=== PATIENT | female | born 1935 | race Caucasian/White ===

== ENCOUNTER 2017-01-10 21:15 | Inpatient (IN) | payer MEDICARE ==
--- NOTE | ~2017-01-10 | DS ---
Unit #: [id number] #: [id number] Patient: RAUL VALENCIA [id number] [facility] [address] [facility]. [place], [place] [address] [id number] I MR#: [id number] NAME: RAUL VALENCIA ROOM: 330 Age: 81 Sex: F Admission Date: 01/10/2017 : 1935 Discharge Date: Attending Physician: Jessica Piña M.D. Primary Care Physician: Anna Wylie M.D. DISCHARGE SUMMARY DIAGNOSIS ON ADMISSION 1. Generalized weakness. DIAGNOSES ON DISCHARGE 1. Generalized weakness, improved. 2. Coronary artery disease status post coronary artery bypass graft. 3. Valvular heart disease status post aortic valve replacement. 4. Hypertension. 5. Type 2 diabetes mellitus. 6. Dyslipidemia. 7. Vitamin B12 deficiency. 8. Folate deficiency. 9. Anemia. CONSULTATIONS Dr. Ochoa in renal consultation. DIAGNOSTIC STUDIES LABS: The patient's creatinine is 0.6, sodium is 140, potassium is 4.1. AST was 61 on admission, ALT is 32. WBC is 9.1, hemoglobin 9, platelet count 212. Urine culture revealed mixed growth, around 30,000. The patient's BNP was 190. IMAGING: CT scan of the pelvis did not reveal any acute fracture. CT scan of head did not reveal any acute intracranial abnormality. Chest x-ray did not reveal any acute findings. The patient has multivalve repair. Bilateral hip x-ray revealed degenerative joint disease. No acute fracture. HOSPITAL COURSE This 81-year-old female was admitted to [facility] with weakness. Details are as per admission H and P. The patient was admitted in the hospital and was seen by Dr. 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 The patient had a two-D echocardiogram done, which revealed ejection fraction of 50% to 55%. The patient had mild mitral and mild tricuspid regurgitation present. There was no evidence of aortic valve regurgitation present. Unit #: [id number] #: [id number] Patient: RAUL VALENCIA Anemia. The patient's hemoglobin is 9. Vitamin B12, folic acid and iron levels were done. PHYSICAL EXAMINATION GENERAL: Today, the patient is comfortable and is not in any acute distress. HEENT: Examination revealed no conjunctival congestion. Sclera is nonicteric. NECK: Neck is supple. Trachea is central. RESPIRATORY: Examination revealed decreased breath sounds bilaterally. There are no wheezes or crackles. HEART: Regular rate and rhythm. S1, S2. ABDOMEN: Abdomen is soft, nontender. Bowel sounds are present. EXTREMITIES: Extremities reveal trace pedal edema. SKIN: Skin is warm and dry. NEUROLOGIC: The patient is pleasantly confused, is able to move all extremities. PSYCHIATRIC: The patient is pleasantly confused. VITAL SIGNS: The patient's vital signs reveal temperature of 98.3, pulse 71 per minute, respiratory rate 18 per minute and blood pressure 114/69. RECOMMENDATIONS ON DISCHARGE 1. Condition is stable. 2. Activity is as tolerated. DISCHARGE MEDICATIONS 1. Lopressor 50 mg p.o. b.i.d. 2. Norvasc 10 mg p.o. daily. 3. Lipitor 40 mg p.o. q.h.s. 4. Cipro 250 mg p.o. b.i.d. for 3 days. 5. Glipizide 10 mg p.o. b.i.d. 6. Folic acid 1 mg p.o. daily. 7. Vitamin B12 - 1 mg subcu daily for 7 days, then weekly for 4 weeks, then monthly. 8. Iron sulfate 324 mg p.o. daily. FOLLOW-UP 1. The patient was advised to follow up with primary care physician in one week and have a CBC and BMP done and also for workup on anemia. 2. Follow up with renal as recommended. 3. We will arrange home health regarding home safety assessment, PT, OT and social work care. 4. The patient needs long-term care and that should e arranged on an outpatient basis. I called and discussed with the patient's son, Campbell, who states that his parents have a bedbug issue, and he is working on that, and they were not able to take care of themselves. He said he will talk to the home health social work program coordinator. Dictated by.Sanjana Zambrano TD: 01/13/2017 14:51 JOB #: [id number] Unit #: [id number] #: [id number] Patient: RAUL VALENCIA DISCHARGE SUMMARY Page 1 of 1 X Jessica Piña MD DISCHARGE SUMMARY
--- NOTE | ~2017-01-10 | HP ---
Unit #: [id number] #: [id number] Patient: RAUL VALENCIA [id number] [facility]. [place], [place] [address] [id number] I MR#: [id number] NAME: RAUL VALENCIA ROOM: 330 Age: 81 Sex: F Admission Date: 01/10/2017 : 1935 Attending Physician: Jessica Piña M.D. Primary Care Physician: Anna Wylie M.D. HISTORY AND PHYSICAL CHIEF COMPLAINT Generalized weakness, left hip pain. DISCUSSION This is an 81-year-old female, very poor historian, she has a history of coronary artery disease with three vessel coronary artery bypass graft, history of valve replacement, history of hypertension, diabetes, dyslipidemia. She lives at home with her . Her son found her that she had not been walking for the last twenty-four hours with generalized weakness and she was brought to the emergency room. She is a poor historian, not give me any history, she denied chest pain, she denies nausea, vomiting, fever, chills, cough, or any other complaints. She says she has a valve surgery and coronary artery bypass graft in the past. She is not on anticoagulation. I did call to [facility] and [facility], so far unable to get any records from these two hospitals, will try [place] and [facility], otherwise she is stable. She is complaining of some left hip pain. PAST MEDICAL HISTORY 1. History of coronary artery disease with previous coronary artery bypass graft. 2. History of valvular heart disease. 3. History of status post valve replacement. 4. Hypertension. 5. Diabetes. 6. Dyslipidemia. 7. History of colonoscopy which in 2011 shows krause diverticulosis and moderate size internal hemorrhoids. 8. History of cardiac catheterization in 2012 which shows severe aortic stenosis, left main and right coronary artery stenosis, vsqickxh-hi-hijdja MR, and severe aortic stenosis. PAST SURGICAL HISTORY 1. History of coronary artery disease status post coronary artery bypass grafting. 2. Valve replacement. 3. Right shoulder surgery. 4. History of sebaceous cyst aspiration from chest wall. 5. History of colonoscopy. SOCIAL HISTORY She denies smoking. She denies alcohol. She denies illicit drug use. MEDICATIONS FROM HOME Unit #: [id number] #: [id number] Patient: RAUL VALENCIA Is the followin. Glucophage 1 gram daily 2. Glipizide 20 mg daily 3. Amlodipine/losartan/hydrochlorothiazide 10/160/12.5 once daily 4. Lopressor 50 mg twice daily 5. Lipitor 40 mg daily REVIEW OF SYSTEMS Unobtainable from the patient at this time. PHYSICAL EXAMINATION GENERAL: Elderly female lying in the bed comfortably, currently not in any distress. She is alert, awake, and oriented x1 only, not in any distress. VITAL SIGNS: Current vitals are the following, temperature 98.2, heart rate 90, respiratory rate 16, and blood pressure 124/50. HEENT EXAMINATION: Pupils equal reactive to light and accommodation. Head: Normocephalic and atraumatic. NECK: Supple. No jugular venous distention. HEART: S1 and S2, positive metal click but regular rate and rhythm. LUNGS: Poor entry but clear. ABDOMEN: Soft, nontender, and nondistended. EXTREMITIES: Positive pitting edema. NEUROLOGIC: No focal neurologic deficit. Cranial nerves II through XII intact. DIAGNOSTIC STUDIES LABORATORY: Laboratory workup is the following, sodium 134, potassium is 4.3, CO 25, glucose 189, BUN 57, creatinine 1.2, LFT within normal limits. INR is 1, troponin less than 0.05, white count 12.7, hemoglobin 10, hematocrit 35, platelets 272, glucose 197. IMAGING: Chest x-ray shows no acute findings, valve repair. X-ray of hip negative for fracture. ASSESSMENT/PLAN 1. Generalized weakness, deconditioning, will admit the patient and ask inventory planner to evaluate possible detention placement. 2. Acute kidney injury, questionable baseline, will hold metformin, hold losartan and hydrochlorothiazide and will ask nephrology to evaluate. 3. Lower extremity edema, will get 2D echo and follow with a BNP. 4. Will get urine for urinalysis. 5. Coronary artery disease, status post coronary artery bypass graft. 6. History of valve replacement. 7. Hypertension. 8. Diabetes. 9. Dyslipidemia. 10. Osteoarthritis. 11. DVT prophylaxis, will place the patient on Lovenox. Dictated by José Ho M.D. Unit #: [id number] #: [id number] Patient: ERIKRAUL TD: 01/11/2017 14:04 JOB #: [id number] HISTORY AND PHYSICAL Page 1 of 1 X X HISTORY AND PHYSICAL
--- NOTE | ~2017-01-10 | CR150 ---
[facility] A Service of [facility] RADIOLOGY TEXT RESULTS PATIENT: RAUL VALENCIA LOCATION: [facility] 330- : 36 UNIT #: [id number] AGE: [address]: Jessica Piña MD SEX: F ORDER DR: [id number] [facility] [address] [facility]. [place], [place] [address] [id number] I MR#: [id number] Acc #: [id number] NAME: RAUL VALENCIA : 1935 SEX: F STUDY DATE/TIME: [facility] ROOM: [facility] STUDY DESCRIPTION: CR Hip Min 2 Views Lt Attending Physician: Jessica Piña M.D. Ordering Physician: Sidney Parker M.D. Primary Care Physician: Anna Wylie M.D. MEDICAL IMAGING REPORT This report is preliminary unless electronic signature is present EXAM Left hip and pelvis 01/10, 2239 hours INDICATIONS Hip pain for 2 days. No trauma. TECHNIQUE AP pelvis was obtained in addition to a frog-leg left hip. FINDINGS There is osteoarthritis in both hips with joint space narrowing and spurring. No acute fractures are identified. The femoral heads are normal without evidence of osteonecrosis. Note is made of atherosclerotic disease. IMPRESSION Bilateral hip osteoarthritis. No acute fractures. There is atherosclerotic disease. Dictated by... Veto Wise Jr., M.D. THIS IS AN ELECTRONICALLY VERIFIED REPORT Veto Wise Jr., M.D. at 01/11/2017 9:23 PM RLK/janell TD: 01/11/2017 08:25 JOB #: [id number] MEDICAL IMAGING REPORT Page 1 of 1 COPY
--- NOTE | ~2017-01-10 | CT71 ---
[facility] A Service of [facility] RADIOLOGY TEXT RESULTS PATIENT: RAUL VALENCIA LOCATION: [facility] : 36 UNIT #: [id number] AGE: [address]: Jessica Piña MD SEX: F ORDER DR: [id number] [facility] [address] [facility]. [place], [place] [address] [id number] I MR#: [id number] Acc #: [id number] NAME: RAUL VALENCIA : 1935 SEX: F STUDY DATE/TIME: UNIT: [address] ROOM: [facility] STUDY DESCRIPTION: CT Head Wo Contrast Attending Physician: Jessica Piña M.D. Ordering Physician: Sidney Parker M.D. Primary Care Physician: Anna Wylie M.D. MEDICAL IMAGING REPORT This report is preliminary unless electronic signature is present EXAM Head CT 01/10 2318 hours INDICATIONS Increasing weakness over the last 2 days with recent falls. 3 falls yesterday. TECHNIQUE Axial images were obtained from base to vertex without contrast. This CT exam was performed with one or more of the following radiation dose reduction techniques: automatic exposure control, adjustment of mA and/or kV according to patient size, and iterative reconstruction. COMPARISON No comparison. FINDINGS There is generalized atrophy with chronic small vessel ischemic change in the white matter. 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 Atherosclerotic disease noted in the carotid siphons and vertebral arteries. There is no acute infarct or hemorrhage. There are no masses. No skull fracture. IMPRESSION No acute intracranial abnormalities. Chronic changes as above. No skull fracture. Dictated by... Veto Wise Jr., M.D. THIS IS AN ELECTRONICALLY VERIFIED REPORT Veto Wise Jr., M.D. at 01/11/2017 9:23 PM RLK/to [facility] A Service of [facility] RADIOLOGY TEXT RESULTS PATIENT: RAUL VALENCIA LOCATION: [facility] : 36 UNIT #: [id number] AGE: [address]: Jessica Piña MD SEX: F ORDER DR: TD: 01/11/2017 09:10 JOB #: [id number] MEDICAL IMAGING REPORT Page 1 of 1 COPY
--- NOTE | ~2017-01-10 | CR72 ---
[facility] A Service of [facility] RADIOLOGY TEXT RESULTS PATIENT: RAUL VALENCIA LOCATION: [facility] 330- : 36 UNIT #: [id number] AGE: [address]: Jessica Piña MD SEX: F ORDER DR: [id number] [facility] [address] [facility]. [place], [place] [address] [id number] I MR#: [id number] Acc #: [id number] NAME: RAUL VALENCIA : 1935 SEX: F STUDY DATE/TIME: [facility] STUDY DESCRIPTION: CR Chest Single View Portable Attending Physician: Jessica Piña M.D. Ordering Physician: Sidney Parker M.D. Primary Care Physician: Anna Wylie M.D. MEDICAL IMAGING REPORT This report is preliminary unless electronic signature is present EXAM Portable chest 01/10, 22:37 INDICATIONS Shortness of air with activity, weakness and chest pain for 2 days. TECHNIQUE/COMPARISON AP portable chest compared with 10/24/2011 FINDINGS There is mild cardiomegaly. Patient is status post multivalve repair. There is some chronic elevation of the right hemidiaphragm. Lungs are clear. No pneumothorax. IMPRESSION Status post valve repair. No acute findings in the chest. Dictated by... Veto Wise Jr., M.D. THIS IS AN ELECTRONICALLY VERIFIED REPORT Veto Wise Jr., M.D. at 01/11/2017 9:23 PM RLK/janell TD: 01/11/2017 08:23 JOB #: [id number] MEDICAL IMAGING REPORT Page 1 of 1 COPY
--- NOTE | ~2017-01-10 | CO ---
Unit #: [id number] #: [id number] Patient: RAUL VALENCIA [id number] [address] [place], [place] [address] [id number] I MR#: [id number] NAME: RAUL VALENCIA. ROOM: 330 Age: 81 Sex: F Admission Date: 01/10/2017 : 1935 Attending Physician: Jessica Piña M.D. Primary Care Physician: Anna Wylie M.D. CONSULTATION REPORT CONSULT REQUESTING PHYSICIAN Dr. Ho REASON FOR CONSULTATION Patient with elevated BUN and creatinine, known history of diabetes mellitus and coronary artery disease. HISTORY OF PRESENTING ILLNESS This patient is a very pleasant 81-year-old white female with a history of type 2 diabetes, hypertension, osteoarthritis, history of coronary artery disease status post CABG three years ago along with valve replacement. The patient was admitted following a fall with generalized weakness and deconditioning. She fell at home, was brought in for admission. On admission, the patient was found to have serum creatinine of 1.2. Her baseline creatinine is not available in the system. The patient reported that she tripped and fell. She denied any dysuria or frequency of urination or hesitancy of urination. The patient does seem to have urinary tract infection on urinalysis with 5-10 WBCs, positive proteinuria and leukocyte esterase indicative of chronic kidney disease from diabetes with urinary tract infection. May be causing patient to get confused and fall. Currently, she is feeling better. Her serum creatinine has improved to 0.9 from 1.2. She still looked clinically a little bit intravascularly volume depleted. PAST MEDICAL HISTORY As per history of presenting illness. FAMILY HISTORY Noncontributory. MEDICATIONS Include: 1. Glucophage 1 g twice daily. 2. Glipizide 20 mg daily. 3. Amlodipine/valsartan/hydrochlorothiazide, one tablet daily. 4. Lopressor 50 mg daily. 5. Lipitor 40 mg daily. REVIEW OF SYSTEMS As per history of presenting illness. PHYSICAL EXAMINATION GENERAL: The patient is in no acute distress. Unit #: [id number] #: [id number] Patient: RAUL VALENCIA VITAL SIGNS: Temperature is 98, pulse is 70, blood pressure 137/66. HEENT: Dry mucosa. No oral exudate. NECK: Supple. There is no JVD, no bruit, no thyromegaly, no cervical lymphadenopathy. CHEST: Clear to auscultation bilaterally. CARDIOVASCULAR: Regular rate and rhythm. No rub, murmur or gallop. ABDOMEN: Soft, nontender, nondistended. Positive bowel sounds. EXTREMITIES: The patient has no peripheral edema. DIAGNOSTIC STUDIES LABORATORY DATA: The patient's urine showed positive proteinuria, +1 positive leukocyte esterase and pyuria indicative of urinary tract infection. The patient's blood count is 12.7, white cell count, hemoglobin 10.8, hematocrit 35, platelet count 222. On the serum chemistry, sodium is 139, potassium 4, chloride 106, bicarb 25, BUN 45, creatinine 0.9. The patient, as I said, looks intravascularly volume depleted and was on diuretics as well so will give IV fluids. Patient does seem to have CKD secondary to diabetic nephropathy with proteinuria. Will need to have a followup in the clinic. Will aid patient on some antibiotic including Ciprofloxacin orally or ampicillin and will monitor electrolytes and renal function. Dictated by... Sanjana Negron/antoine TD: 01/12/2017 05:25 JOB #: [id number] CONSULTATION REPORT Page 1 of 1 X Khushbu Ochoa MD X CONSULTATION REPORT
--- NOTE | ~2017-01-10 | CT107 ---
[facility] A Service of [facility] RADIOLOGY TEXT RESULTS PATIENT: RAUL VALENCIA LOCATION: [facility] - : 36 UNIT #: [id number] AGE: [address]: Jessica Piña MD SEX: F ORDER DR: [id number] [facility] [address] [facility]. [place], [place] [address] [id number] I MR#: [id number] Acc #: [id number] NAME: RAUL VALENCIA : 1935 SEX: F STUDY DATE/TIME: [facility]: [facility] STUDY DESCRIPTION: CT Pelvis Wo Cont Attending Physician: Jessica Piña M.D. Ordering Physician: Sidney Parker M.D. Primary Care Physician: Anna Wylie M.D. MEDICAL IMAGING REPORT This report is preliminary unless electronic signature is present EXAM Pelvis CT 01/10 at 23:22 INDICATIONS 3 fall yesterday with subsequent left hip pain. TECHNIQUE Axial images were obtained through the pelvis without contrast. Multiplanar reformats were obtained. This CT exam was performed with one or more of the following radiation dose reduction techniques: automatic exposure control, adjustment of mA and/or kV according to patient size, and iterative reconstruction. COMPARISON No comparison CT FINDINGS There is degenerative disease in the lower lumbar spine. No acute fractures are identified in the pelvis. There is no sacroiliac joint diastases. There is no osteonecrosis in the femoral heads. There is bilateral hip osteoarthritis. There is some degenerative disease at the symphysis pubis. Soft tissue windows demonstrate extensive atherosclerotic disease. No evidence of joint effusion on either hip. There is sigmoid diverticulosis. There is no free fluid in the pelvis. IMPRESSION No acute fracture or malalignment in the pelvis or hips. There is bilateral hip osteoarthritis. No evidence of osteonecrosis. Dictated by... Veto Wise Jr., M.D. THIS IS AN ELECTRONICALLY VERIFIED REPORT [facility] A Service of [facility] RADIOLOGY TEXT RESULTS PATIENT: RAUL VALENCIA LOCATION: [facility] 330-01 : 36 UNIT #: [id number] AGE: [address]: Jessica Piña MD SEX: F ORDER DR: Veto Wise Jr., M.D. at 01/11/2017 9:23 PM DALEK/janell TD: 01/11/2017 09:33 JOB #: [id number] MEDICAL IMAGING REPORT Page 1 of 1 COPY
--- NOTE | ~2017-01-10 | EKG ---
PATIENT: RAUL VALENCIA UNIT #: [id number] Ventricular Rate: 89 BPM Atrial Rate: 89 BPM P-R Interval: 150 ms QRS Duration: 118 ms Q-T Interval: 406 ms QTC Calculation(Bezet): 493 ms P Owings: 43 degrees Calculated R Owings: -56 degrees Calculated T Owings: 57 degrees Diagnosis Line: Normal sinus rhythm with sinus arrhythmia Diagnosis Line: Pulmonary disease pattern Diagnosis Line: Incomplete right bundle branch block Diagnosis Line: Left anterior fascicular block Diagnosis Line: Prolonged QT Diagnosis Line: Abnormal ECG Diagnosis Line: No previous ECGs available Diagnosis Line: Confirmed by BUDDY GRIFFIN MD ([id number]) on Diagnosis Line: 01/11/2017 11:14:50 AM INTERPRETING MD: FELECIA
[~2017-01-10 21:15] MED LIST: ANUSOL SUPP1 SUPP; DIOVAN HCT 160/1 TAB PO; EXFORGE HCT 101 EACH PO; GLIPIZIDE10 MG PO; GLIPIZIDE10 MG/BOTT PO; LIPITOR PO; LIPITOR40 MG PO; LOPRESSOR PO; METFORMIN PO; NORVASC PO; PERCOCET 5-3251 TAB PO; ZETIA PO
[2017-01-10 22:28] LABS: BASOPHIL# 0.1 X10e3 (0-0.3); BASOPHIL% 0.9 % (0-2.5); DIFF IND NO; EOSINOPHIL% 0.1 % (0.0-7.0); HEMOGLOBIN 10.8 gm/dL (12.0-16.0); LYMPHOCYTE# 1.1 X10e3 (1.0-3.5); LYMPHOCYTE% 8.9 % (17.0-45.0); MEAN CELL VOLUME 76.8 FL (83-96); MEAN CORPUSCULAR HEMOGLOBIN 23.7 PG (28-34); MEAN CORPUSCULAR HGB CONC 30.9 g/dL (30-36); MEAN PLATELET VOLUME 8.7 FL (6.5-11.5); MONOCYTE# 1.6 X10e3 (0-1.0); NEUTROPHIL# 9.7 X10e3 (1.5-7.1); NEUTROPHIL% 77.1 % (40-75); PLATELET COUNT 272 X10e3 (140-420); RED BLOOD COUNT 4.55 X10e (3.90-5.30); RED CELL DISTRIBUTION WIDTH 15.9 % (11.0-15.5); WHITE BLOOD COUNT 12.7 X10e3 (4.0-10.5)
[2017-01-10 22:39] LABS: PROTHROMBIN TIME (PATIENT) 10.8 SECONDS (10.0-11.7)
[2017-01-10 22:41] LABS: POC - CKMB 8.8 ng/mL (0.0-7.9); POC - TROPONIN <0.05 ng/mL (<=0.05)
[2017-01-10 22:51] LABS: ALBUMIN SERUM 3.3 g/dL (3.5-5.0); BILIRUBIN, DIRECT 0.2 mg/dL (0.0-0.2); BILIRUBIN,INDIRECT 0.7 mg/dL (0.0-0.9); BILIRUBIN,TOTAL 0.9 mg/dL (0.2-2.0); BUN/CREATININE RATIO 47.5; CALCIUM SERUM 8.6 mg/dL (8.4-10.2); CREATININE SERUM 1.2 mg/dL (0.6-1.4); GLOM FILT RATE Estimated 42.7 mL/min (>60); POTASSIUM 4.3 mmol/L (3.5-5.1); PROTEIN TOTAL SERUM 6.6 g/dL (6.0-8.3)
[2017-01-10] MEDS ORDERED: GLUCOPHAGE500 MG PO (22:54)
[2017-01-10] MEDS ORDERED: GLIPIZIDE ER10 MG PO (22:55)
[2017-01-10] MEDS ORDERED: LOPRESSOR PO (22:57)
[2017-01-10] MEDS ORDERED: AMLOD-VALSA-HC1 EAC1 PO (22:57)
[2017-01-10] MEDS ORDERED: LIPITOR40 MG PO (22:57)
[2017-01-11 00:42] LABS: POC - CKMB 5.5 ng/mL (0.0-7.9); POC - TROPONIN <0.05 ng/mL (<=0.05)
[2017-01-11 01:16] LABS: URINE SOURCE CATH
[2017-01-11 01:24] LABS: URINE APPEARANCE CLOUDY; URINE BILIRUBIN NEG (NEG); URINE BLOOD 2+ (NEG); URINE COLOR YELLOW; URINE GLUCOSE NEG (NEG); URINE KETONE TRACE (NEG); URINE LEUKOCYTE ESTERASE 1+ (NEG); URINE NITRATE NEG (NEG); URINE PROTEIN 1+ (NEG); URINE SPECIFIC GRAVITY 1.022 (1.003-1.035); URINE UROBILINOGEN 0.2 MG/DL (NEG)
[2017-01-11 01:27] LABS: CULTURE INDICATED? YES; URBCS1 AUWI 0-2 /[HPF] (0-2); URINE BACTERIA AUWI 4+ (NEGATIVE); URINE SQUAMOUS EPITHELIAL CELL OCC /[HPF]
[2017-01-11 06:47] LABS: CALCIUM SERUM 8.2 mg/dL (8.4-10.2); CREATININE SERUM 0.9 mg/dL (0.6-1.4); GLOM FILT RATE Estimated 60.4 mL/min (>60)
[2017-01-11 23:03] LABS: CREATININE,RANDOM URINE 128 mg/dL; SODIUM URINE RANDOM 49 mmol/L; TOTAL PROTEIN,RANDOM URINE 40 mg/dl (<10)
[2017-01-12 07:46] LABS: HEMATOCRIT 29.1 % (35.0-45.0); MEAN CELL VOLUME 77.9 FL (83-96); MEAN CORPUSCULAR HGB CONC 30.8 g/dL (30-36); MEAN PLATELET VOLUME 8.8 FL (6.5-11.5); RED BLOOD COUNT 3.73 X10e (3.90-5.30); WHITE BLOOD COUNT 9.1 X10e3 (4.0-10.5)
[2017-01-12 08:25] LABS: BUN/CREATININE RATIO 48.33; CREATININE SERUM 0.6 mg/dL (0.6-1.4); GLOM FILT RATE Estimated 86.1 mL/min (>60); POTASSIUM 4.1 mmol/L (3.5-5.1)
[2017-01-12 17:15] LABS: FOLATE (FOLIC ACID) 5.4 ng/mL (>5.8)
[2017-01-13 05:38] LABS: HEMATOCRIT 28.5 % (35.0-45.0); HEMOGLOBIN 8.8 gm/dL (12.0-16.0); MEAN CELL VOLUME 77.8 FL (83-96); MEAN CORPUSCULAR HEMOGLOBIN 24.1 PG (28-34); MEAN CORPUSCULAR HGB CONC 30.9 g/dL (30-36); MEAN PLATELET VOLUME 9.3 FL (6.5-11.5); RED BLOOD COUNT 3.66 X10e (3.90-5.30); RED CELL DISTRIBUTION WIDTH 15.8 % (11.0-15.5); WHITE BLOOD COUNT 8.2 X10e3 (4.0-10.5)
[2017-01-13 06:55] LABS: CALCIUM SERUM 8.1 mg/dL (8.4-10.2); CREATININE SERUM 0.7 mg/dL (0.6-1.4); GLOM FILT RATE Estimated 81.8 mL/min (>60)
== END 2017-01-13 19:01 | DRG 683 ==
LOC: CED 21:15 → CEDOF 23:30 → C3A PCU 23:30 → CED 23:34 → CEDOF 23:34 → C3A PCU 01-11 02:01 → CEDOF 01-11 02:01 → C3A PCU 01-11 06:00
PROVIDERS: Emergency Medicine; Internal Medicine; Internal Medicine Nephrology
PROC: B24BYZZ Ultrasonography of Heart with Aorta using Other Contrast (ICD-10-PCS; principal; 2017-01-11)
DX: N17.9 Acute kidney failure, unspecified (principal); N39.0 Urinary tract infection, site not specified; E11.21 Type 2 diabetes mellitus with diabetic nephropathy; E11.9 Type 2 diabetes mellitus without complications; I12.9 Hypertensive chronic kidney disease with stage 1 through stage 4 chronic kidney disease, or unspecified chronic kidney disease; D50.9 Iron deficiency anemia, unspecified; R53.1 Weakness; I08.1 Rheumatic disorders of both mitral and tricuspid valves; I25.10 Atherosclerotic heart disease of native coronary artery without angina pectoris; Z95.1 Presence of aortocoronary bypass graft; Z79.84 Long term (current) use of oral hypoglycemic drugs; E78.5 Hyperlipidemia, unspecified; Z95.2 Presence of prosthetic heart valve; R60.0 Localized edema; M19.90 Unspecified osteoarthritis, unspecified site; E11.22 Type 2 diabetes mellitus with diabetic chronic kidney disease; N18.9 Chronic kidney disease, unspecified; E53.8 Deficiency of other specified B group vitamins; R53.81 Other malaise
CPT/HCPCS: 36415; 70450; 71010; 72192; 73502; 80048; 80076; 81003; 82553; 82570; 82607; 82728; 82746; 82947; 83540; 83550; 83735; 83880; 84100; 84156; 84300; 84443; 84484; 85025; 85027; 85610; 87086; 89190; 93005; 93306; 96360; 97110; 97116; 97163; 97166; 97530; 97535; 99285; G8978-GP; G8979-GP; G8987-GO; G8988-GO; J0696; J1650; J1815